=== PATIENT | female | born 1990 | race Caucasian/White ===

== ENCOUNTER 2018-08-07 17:40 | Emergency (ER) | payer MEDICAID ==
[~2018-08-07] VITALS: Ht 162.6 cm; Wt 82.0 kg
[2018-08-07] MEDS ORDERED: SODIUM CHLORIDE 0.9% 1,000 ML IV ONE (19:00)
[2018-08-07 19:03] LABS: CLARITY URINE CLEAR (CLEAR); COLOR URINE YELLOW (YELLOW); KETONES URINE NEGATIVE (NEGATIVE); LEUKOCYTE ESTERASE URINE NEGATIVE (NEGATIVE); NITRITE URINE NEGATIVE (NEGATIVE); OCCULT BLOOD URINE 2+ (NEGATIVE); PROTEIN URINE 1+ (NEGATIVE); SPECIFIC GRAVITY URINE 1.022 (1.005-1.030); UROBILINOGEN URINE 0.2 E.U./dL (0.2-1.0)
[2018-08-07 19:27] LABS: EOSINOPHILS % 2.8 % (0.0-5.0); HEMATOCRIT. 36.6 % (36.0-48.0); LYMPHOCYTES % 27.8 % (20.0-50.0); MEAN CORPUSCULAR VOLUME 79.5 fL (81.0-99.0); MEAN PLATELET VOLUME 6.2 fl (7.4-10.4); MONOCYTES % 4.7 % (2.0-8.0); NEUTROPHILS % 63.7 % (40.0-76.0); PLATELET 349 x1000/uL (130-400); RED BLOOD CELL COUNT 4.61 mill/uL (4.2-5.4); RED CELL DISTRIBUTION WIDTH 16.5 % (11.6-14.6)
[2018-08-07 19:33] LABS: CHLORIDE 105 mEq/L (98-107)
[2018-08-07 19:55] LABS: B-HCG QUANTITATIVE 43419 mIU/mL (<3)
[2018-08-07 23:50] VITALS: BP 115/68
== END 2018-08-07 23:52 | disposition home or self-care (01) ==
LOC: ER 17:40
DX: O20.0 Threatened abortion (principal); Z3A.08 8 weeks gestation of pregnancy; O26.891 Other specified pregnancy related conditions, first trimester; R03.0 Elevated blood-pressure reading, without diagnosis of hypertension
CPT/HCPCS: 36415; 76801; 76817; 80048; 81003; 81025; 84702; 85025; 86850; 86900; 86901; 87086; 99284; J7030

== ENCOUNTER 2023-09-29 22:56 | Emergency (ER) | payer MEDICAID ==
[~2023-09-29] VITALS: Ht 167.6 cm; Wt 100.0 kg
[2023-09-29 23:29] VITALS: BP 137/88; PULSE 80; RESP 18; TEMP 97.8; O2SAT 98
== END 2023-09-30 05:34 | disposition left against medical advice (07) ==
LOC: ER 22:56
DX: R42 Dizziness and giddiness (principal); Z53.21 Procedure and treatment not carried out due to patient leaving prior to being seen by health care provider

== ENCOUNTER 2024-11-23 10:37 | Emergency (ER) | payer MEDICAID ==
[~2024-11-23] VITALS: Ht 172.7 cm; Wt 80.0 kg
[2024-11-23 10:48] VITALS: O2SAT 100
[2024-11-23] MEDS: KETOROLAC 15MG/ML VIAL IV ONE (12:12)
[2024-11-23] MEDS: DEXAMETHASONE 10 MG/ML VIAL IV ONE (12:15)
[2024-11-23] MEDS: METOCLOPRAMIDE HCL 10MG/2ML VIAL IV ONE (12:15)
[2024-11-23 12:26] LABS: BASOPHILS % 0.3 % (0.0-2.0); EOSINOPHILS % 1.4 % (0.0-5.0); HEMATOCRIT. 39.0 % (36.0-48.0); HEMOGLOBIN. 12.7 g/dL (12.0-16.0); LYMPHOCYTES % 32.0 % (20.0-50.0); MEAN PLATELET VOLUME 6.3 fl (7.4-10.4); MONOCYTES % 7.3 % (2.0-8.0); NEUTROPHILS % 59.0 % (40.0-76.0); PLATELET 411 x1000/uL (130-400); RED BLOOD CELL COUNT 4.70 mill/uL (4.2-5.4); RED CELL DISTRIBUTION WIDTH 14.3 % (11.6-14.6)
[2024-11-23 12:42] LABS: CREATININE 0.7 mg/dL (0.6-1.0)
[2024-11-23 12:43] LABS: TROPONIN I HIGH SENSITIVITY < 4 ng/L (3.0-34); UREA NITROGEN BLOOD 13 mg/dL (9-23)
[2024-11-23 13:38] VITALS: BP 114/61; PULSE 63; RESP 16; TEMP 36.9; O2SAT 100
== END 2024-11-23 13:39 | disposition home or self-care (01) ==
LOC: ER 10:37
DX: R07.9 Chest pain, unspecified (principal); R51.9 Headache, unspecified; Z98.890 Other specified postprocedural states
CPT/HCPCS: 80048; 85025; 84484; 36415; 71045; 96374; 96375; 99284; J1100; J1885; J2765; Z7610 ×3

== ENCOUNTER 2024-11-29 14:44 | Emergency (ER) | payer MEDICAID ==
[~2024-11-29] VITALS: Ht 167.6 cm; Wt 81.0 kg
[2024-11-29 15:02] VITALS: O2SAT 100
[2024-11-29 15:40] LABS: BASOPHILS % 0.5 % (0.0-2.0); EOSINOPHILS % 1.0 % (0.0-5.0); HEMATOCRIT. 38.4 % (36.0-48.0); HEMOGLOBIN. 12.8 g/dL (12.0-16.0); LYMPHOCYTES % 29.9 % (20.0-50.0); MEAN PLATELET VOLUME 6.2 fl (7.4-10.4); MONOCYTES % 7.6 % (2.0-8.0); NEUTROPHILS % 61.0 % (40.0-76.0); PLATELET 367 x1000/uL (130-400); RED BLOOD CELL COUNT 4.68 mill/uL (4.2-5.4); RED CELL DISTRIBUTION WIDTH 14.6 % (11.6-14.6)
[2024-11-29 15:53] LABS: CREATININE 0.9 mg/dL (0.6-1.0); TROPONIN I HIGH SENSITIVITY < 4 ng/L (3.0-34); UREA NITROGEN BLOOD 13 mg/dL (9-23)
[2024-11-29 15:55] LABS: ASPARTATE AMINOTRANSFERASE 17 IU/L (<34); BILIRUBIN DIRECT 0.1 mg/dL (<=3.0); BILIRUBIN TOTAL 0.4 mg/dL (0.1-1.0); PROTEIN TOTAL 7.7 g/dL (6.0-8.3)
[2024-11-29 15:56] LABS: INR 1.0
[2024-11-29] MEDS: KETOROLAC 30MG/ML VIAL IM ONE (17:00)
[2024-11-29 18:16] VITALS: BP 118/74; PULSE 71; RESP 18; TEMP 36.6; O2SAT 100
== END 2024-11-29 18:19 | disposition home or self-care (01) ==
LOC: ER 14:48
DX: R07.89 Other chest pain (principal); G43.909 Migraine, unspecified, not intractable, without status migrainosus; R06.02 Shortness of breath; Z98.890 Other specified postprocedural states
CPT/HCPCS: 99285; 71045; 80076; 80048; 83880; 84443; 85025; 85610; 85730; 84484; 36415; 93005; 96372; J1885